=== PATIENT | male | born 1975 | race Two or more races ===

== ENCOUNTER 2023-03-16 07:20 | Emergency (ER) | payer MEDICAID, OTHER ==
[~2023-03-16] VITALS: Ht 172.7 cm; Wt 96.6 kg
[2023-03-16 07:46] VITALS: BP 156/101; PULSE 76; RESP 18; TEMP 97.5; O2SAT 95
[2023-03-16] MEDS ORDERED: KETOROLAC TROMETH 60MG/2ML VIAL IM ONE (08:00)
[2023-03-16 08:22] LABS: Urine Bacteria FEW /hpf (None Seen); Urine Blood Negative /uL (Negative); Urine Mucus FEW (None Seen); Urine Specific Gravity 1.026 (1.001-1.035); Urine WBC 3 /hpf (0 - 3)
[2023-03-16] MEDS ORDERED: IBUP-1456 PO (08:24)
[2023-03-16] MEDS ORDERED: METH-1182 PO (08:24)
== END 2023-03-16 08:32 | disposition home or self-care (01) ==
LOC: ER 07:20
DX: S39.012A Strain of muscle, fascia and tendon of lower back, initial encounter (principal); M51.36 Other intervertebral disc degeneration, lumbar region; F12.90 Cannabis use, unspecified, uncomplicated; X58.XXXA Exposure to other specified factors, initial encounter; Y93.89 Activity, other specified; Y92.89 Other specified places as the place of occurrence of the external cause; Y99.8 Other external cause status
CPT/HCPCS: 72100; 81001; 96372; 99284; J1885

== ENCOUNTER 2023-04-19 09:20 | Emergency (ER) | payer MEDICAID ==
[~2023-04-19] VITALS: Ht 175.3 cm; Wt 99.1 kg
[~2023-04-19 09:20] MED LIST: IBUP-1456 PO; METH-1182 PO
[2023-04-19 09:27] VITALS: BP 140/90; TEMP 98.4
[2023-04-19 10:50] VITALS: PULSE 72; RESP 18; O2SAT 96
== END 2023-04-19 11:00 | disposition home or self-care (01) ==
LOC: ER 09:20
DX: M23.91 Unspecified internal derangement of right knee (principal); X58.XXXA Exposure to other specified factors, initial encounter; Y93.89 Activity, other specified; Y92.89 Other specified places as the place of occurrence of the external cause; Y99.8 Other external cause status
CPT/HCPCS: 73562